=== PATIENT | female | born 1965 | race Caucasian/White ===

== ENCOUNTER → 2017-10-11 | Outpatient (CLI) | payer BC ==
[~2017-10-11] MED LIST: CLIMARA; ESTROGEN PATCH; HYDC25 PO; LISI5TAB3 PO; NITR-5 PO; OXYC-57 PO; PHEN-876 PO
--- NOTE | 2017-10-11 14:16 | DIAGNOSTIC IMAGING REPORT ---
VENOUS DOPP LOWER EXT UNILAT HISTORY: 52 years-old Female LEFT LOWER EXTREMITY R/O DVT *STAT* acute swelling of the left lower extremity COMPARISON: Duplex venous ultrasound 07/21/2006 TECHNIQUE: Multiple real-time sonogram images of the left lower extremity deep venous structures were obtained assessing grayscale appearance, color and spectral flow FINDINGS: There is normal flow, compressibility, augmentation and phasicity of the left lower extremity deep venous structures. IMPRESSION: No sonographic evidence of deep venous thrombosis. The above report was generated using voice recognition software. It may contain grammatical, syntax or spelling errors. Electronically signed by: Brooks Hays M.D. 10/11/2017 2:15 PM Dictated Date/Time: 10/11/2017 2:14 PM
== END | disposition home or self-care (01) ==
LOC: C.ULTRBC 12:25
PROVIDERS: ATTEND Family Medicine
DX: M79.89 Other specified soft tissue disorders (principal)

== ENCOUNTER → 2017-11-24 | Outpatient (CLI) | payer BC ==
--- NOTE | 2017-11-24 17:02 | DIAGNOSTIC IMAGING REPORT ---
SINUSES MIN 3 VIEWS ROUTINE CLINICAL HISTORY: Sinus congestion. Asthma. COMPARISON STUDY: No previous studies for comparison. FINDINGS: The sinuses are clear by radiography. No air-fluid levels are noted. Mastoid air cells are grossly clear. IMPRESSION: No paranasal sinus disease by radiography. Electronically signed by: Golden Yung M.D. 11/24/2017 5:00 PM Dictated Date/Time: 11/24/2017 4:59 PM
== END | disposition home or self-care (01) ==
LOC: C.RAD1850 16:43
PROVIDERS: ATTEND Physician Assistant
DX: R09.81 Nasal congestion (principal); J45.909 Unspecified asthma, uncomplicated

== ENCOUNTER → 2018-03-31 | Outpatient (CLI) | payer BC ==
--- NOTE | 2018-03-31 09:55 | DIAGNOSTIC IMAGING REPORT ---
L TOE(S) MIN 2 VIEWS HISTORY: 52 years-old Female LEFT GREAT TOE FX acute pain of the first great toe with reported known history of fracture. COMPARISON: None available TECHNIQUE: 3 views of the left great toe FINDINGS: There is an acute appearing intra-articular fracture involving the base of the first proximal phalanx with fracture lines noted both medially and laterally. There is approximately 1 mm medial displacement of the medial fracture fragment. Moderate soft tissue swelling. Mild degenerative changes about the first MTP joint with hallux valgus deformity. Marginal spurring with joint space narrowing is noted about the midfoot. No opaque foreign body. IMPRESSION: Acute intra-articular fracture of the first proximal phalangeal base with only minimal displacement. The above report was generated using voice recognition software. It may contain grammatical, syntax or spelling errors. Electronically signed by: Brooks Hays M.D. 03/31/2018 9:54 AM Dictated Date/Time: 03/31/2018 9:51 AM
== END | disposition home or self-care (01) ==
LOC: C.RDSM 09:15
PROVIDERS: ATTEND Family Medicine
DX: S92.919A Unspecified fracture of unspecified toe(s), initial encounter for closed fracture (principal); X58.XXXA Exposure to other specified factors, initial encounter

== ENCOUNTER → 2018-06-28 | Outpatient (CLI) | payer BC ==
--- NOTE | 2018-06-28 08:27 | DIAGNOSTIC IMAGING REPORT ---
CT OF THE ABDOMEN AND PELVIS WITHOUT CONTRAST CLINICAL HISTORY: Sjogrens syndrome. 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 COMPARISON STUDY: No previous studies for comparison. TECHNIQUE: Axial images of the abdomen and pelvis were obtained without IV contrast. Images were reviewed in the axial, sagittal, and coronal planes. A dose lowering technique was utilized adhering to the principles of ALARA. FINDINGS: Visualized portions of the lower chest demonstrate a few pulmonary cysts, as shown on CT of November 29, 2017. Evaluation of the abdomen and pelvis is suboptimal on this unenhanced exam. The liver, spleen, adrenal glands and pancreas are normal. Note is made of a nonfat-containing 1 cm lesion arising from the lower pole of the left kidney shown on image 228 of [id number]. Attenuation of this lesion is just above water, measuring approximately 12 Hounsfield units. No additional renal lesions are identified on this unenhanced exam. No renal, ureteral or bladder calculi are present. There is no evidence for a bowel obstruction. There is a ingested tablets within the small bowel. No lymphadenopathy is present. No suspicious osseous lesions are noted. IMPRESSION: 1. 1 cm lesion arising from the lower pole of the left kidney which is suboptimally assessed on this unenhanced exam. This measures just above water attenuation. This lesion is indeterminate although a cyst is favored. Correlation with prior abdominal imaging studies, if available, is recommended. In the absence of prior studies, a renal protocol CT or MRI in one year is recommended. 2. No acute process within the abdomen or pelvis on unenhanced exam. Electronically signed by: Golden Yung M.D. 06/28/2018 8:25 AM Dictated Date/Time: 06/28/2018 7:50 AM
== END | disposition home or self-care (01) ==
LOC: C.CTS 07:24
PROVIDERS: ATTEND Internal Medicine Critical Care Medicine
DX: J98.4 Other disorders of lung (principal); M35.00 Sjogren syndrome, unspecified